=== PATIENT | female | born 2000 | race Hispanic/Latino ===

== ENCOUNTER 2019-03-13 14:00 | Inpatient (IN) | payer BC, OTHER ==
[~2019-03-13] VITALS: Ht 162.6 cm; Wt 92.5 kg
[2019-04-07] MEDS ORDERED: TYLENOL #3 PO ONE (13:53)
[2019-04-08] MEDS ORDERED: LACTATED RINGERS 1,000 ML ONE ×2 (02:29→04:00)
[2019-04-08] MEDS ORDERED: NS 100ML 100 ML IV ONE ×3 (02:29→10:51)
[2019-04-08] MEDS ORDERED: AMPICILLIN SODIUM ONE (02:29)
[2019-04-08] MEDS ORDERED: STADOL IV PRN (03:00)
[2019-04-08] MEDS ORDERED: SUBLIMAZE IV PRN (03:00)
[2019-04-08] MEDS ORDERED: BICITRA PO ONE (03:00)
[2019-04-08] MEDS ORDERED: LACTATED RINGERS 1,000 ML IV SCH ×2 (03:00→05:30)
[2019-04-08] MEDS ORDERED: DEMEROL IV PRN (03:00)
[2019-04-08] MEDS ORDERED: XYLOCAINE SQ PRN (03:00)
[2019-04-08] MEDS ORDERED: PHENERGAN IV PRN (03:00)
[2019-04-08] MEDS ORDERED: ZOFRAN 4 MG/2 ML VIAL IV PRN (03:00)
[2019-04-08] MEDS ORDERED: WATER ONE (03:10)
[2019-04-08] MEDS ORDERED: LIDOCAINE 1% VIAL ONE (03:10)
[2019-04-08] MEDS ORDERED: OXYTOCIN 30 UNIT/NS 500 ML 500 ML IV ONE ×2 (03:10→08:08)
[2019-04-08] MEDS ORDERED: NAROPIN 0.2% 100 ML BAG 100 ML ONE (03:13)
[2019-04-08 03:14] LABS: BASOPHIL % 0.1 % (0.0-0.2); EOSINOPHIL % 0.1 % (0.0-5.0); LYMPHOCYTES # 1.1 10^3/uL (1.2-5.2); LYMPHOCYTES % 14.8 % (24.0-44.0); MEAN CORP HGB 27.3 pg (26-34); MONOCYTES # 0.9 10^3/uL (0.0-0.4); MONOCYTES % 12.7 % (5.0-12.0); NEUTROPHIL # 5.3 10^3/uL (1.8-8.0); NEUTROPHILS % 72.2 % (41.0-85.0); RED CELL DISTRIBUTION WIDTH 16.2 % (11.5-14.5)
[2019-04-08] MEDS ORDERED: AMPICILLIN SODIUM 2 GM in NS 100ML 100 ML ONE (05:23)
[2019-04-08] MEDS ORDERED: REGLAN IV PRN (05:30)
[2019-04-08] MEDS ORDERED: EPHEDRINE SULFATE IV PRN (05:30)
[2019-04-08] MEDS ORDERED: NARCAN IV PRN ×2 (05:30)
[2019-04-08] MEDS ORDERED: LACTATED RINGERS 1,000 ML IV PRN (05:30)
[2019-04-08] MEDS ORDERED: NUBAIN IV PRN (05:30)
[2019-04-08] MEDS ORDERED: AMPICILLIN ONE ×2 (06:10→10:51)
[2019-04-08] MEDS: AMPICILLIN 1 GM in NS 100ML 100 ML IV SCH ×2 (06:40→11:10)
[2019-04-08] MEDS ORDERED: OXYTOCIN 30 UNIT/NS 500 ML 500 ML IV SCH ×2 (08:00→13:30)
[2019-04-08] MEDS ORDERED: ROPIVACAINE EP SCH (09:00)
--- NOTE | 2019-04-08 10:04 | PCM.HP ---
OB-Chief Complaint and HPI Date/Diagnosis Date: Apr 08, 2019 Time: 09:57 Admit Dx: (1) 40 weeks gestation of ICD Codes: Z3A.40 - 40 weeks gestation of SNOMED: 41601811 (2) Active labor at term SNOMED: 14180076 Chief Complaint/History(PI) : 1 Para: 0 EDC: Apr 07, 2019 Reason for admission: active labor Past Family/Social History Patient History: Congestive heart failure No known health problems 32 MOTHER 33 FATHER Blood Type: O+ Rubella: immune RPR/VDRL: Negative GBS Status: Positive HBsAG: Negative Provider Note: 18 y/o @ 40.1 presents in active labor. She was intact and ctx irregularly.She was 6 cm at admission. GBS prophylaxis was started and pt made no cervical change. Pitocin was started and pt received epidural. Pt was sent home yesterday after being on observation status for several hours without making cervical change. Pt is a transfer of care from [facility] at 23 weeks-records reviewed HIV-neg TOCO-6 min FHT Cat 1 SVE -6-7 A/ 18 y/o @ 40.1 labor GBS + P/ Pitocin augmentation AROM Expect OB EXAM Physical Exam Vital Signs: Weight: 204 Allergies Coded Allergies Type Severity Reaction Last Updated Verified No Known Allergies 02/20/19 No LABS Laboratory Tests Test 04/08/19 03:05 HIV-1 Antibody NON-REACTIVE (NONREACTIVE) HIV-2 Antibody NON-REACTIVE (NONREACTIVE) XANDER SUTTON DO Apr 08, 2019 10:04
--- NOTE | 2019-04-08 13:23 | PRM.DELNOT ---
Delivery Summary Delivery: Spont. Vaginal Delivery Assessment/Plan Assessment/Plan 40.1- over an intact perineum with epidural anesthesia. Viable female , Apgars 7/8, Weight 6 lbs 11 oz. Compound presentation with L hand and tight nuchal cord that I was not able to reduce at the perineum. delivered with nuchal cord attached and 1 clamp attached. Once she was delivered I placed the second clamp and cut the cord. The was handed to the mother. Spontaneous placenta. 2nd degree perineal laceration was repaired with 2-0 & 3-0 Chromic. Bilateral labial and vaginal lacerations were repaired with 3-0 Chromic & 4-0 Monocryl. Pt had extensive edema and bilateral periurethral lacerations that were difficult to repair secondary to friable tissue. 3-0 Chromic was used to obtain hemostasis and a red rubber cath was used during the repair. Pt will be monitored for urinary retention. Approx 150 ml of urine expelled. EBL 350 ml. Mother and stable. XANDER SUTTON DO Apr 08, 2019 13:23
[2019-04-08] MEDS ORDERED: TYLENOL PO PRN (13:30)
[2019-04-08] MEDS ORDERED: TUCKS TP PRN (13:30)
[2019-04-08] MEDS ORDERED: DERMOPLAST SPRAY TP PRN (13:30)
[2019-04-08] MEDS ORDERED: NORCO 5MG PO PRN ×2 (13:30)
[2019-04-08] MEDS ORDERED: MYLANTA PO PRN (13:30)
[2019-04-08] MEDS ORDERED: LANOLIN HYDROUS TP PRN (13:30)
[2019-04-08] MEDS ORDERED: TUCKS ONE (14:06)
[2019-04-08] MEDS ORDERED: LANOLIN HYDROUS TP ONE (14:06)
[2019-04-08] MEDS ORDERED: DERMOPLAST SPRAY TP ONE (14:07)
[2019-04-08] MEDS ORDERED: MOTRIN ONE ×2 (14:07→23:12)
[2019-04-08] MEDS: MOTRIN PO PRN ×2 (14:15→23:17)
[2019-04-08] MEDS ORDERED: COLACE PO ONE (20:43)
[2019-04-08] MEDS: COLACE PO SCH (20:47)
[2019-04-08] MEDS ORDERED: NORCO 5MG PO ONE (23:13)
[2019-04-09 06:20] LABS: BASOPHIL % 0.1 % (0.0-0.2); EOSINOPHIL # 0.1 10^3/uL (0.0-0.2); EOSINOPHIL % 0.8 % (0.0-5.0); LYMPHOCYTES # 1.5 10^3/uL (1.2-5.2); LYMPHOCYTES % 17.1 % (24.0-44.0); MEAN CORP HGB 27.2 pg (26-34); MONOCYTES # 1.4 10^3/uL (0.0-0.4); NEUTROPHIL # 5.5 10^3/uL (1.8-8.0); NEUTROPHILS % 64.6 % (41.0-85.0); RED CELL DISTRIBUTION WIDTH 16.3 % (11.5-14.5)
[2019-04-09] MEDS ORDERED: MOTRIN ONE ×2 (11:36→20:58)
[2019-04-09] MEDS: MOTRIN PO PRN ×2 (11:41→21:05)
--- NOTE | 2019-04-09 11:55 | PRM.PN ---
Progress Note Subjective Date: Apr 09, 2019 Time: 11:53 Physician Notes: PPD # 1 Pt is doing well and has not complaints. Pain controlled with Motrin & Wayne. Working on nursing. Appropriate lochia. No issues with urination. Tolerating regular diet. Abd-firm fundus EX- Full ROM, NT A/ 18 y/o s/p GBS + Nursing P/ Continue PP care Nursing assistance Plan for d/c to home tomorrow. Objective Review IO, Exams,& Results Intake and Output 04/09/19 07:00 Intake Total 700 ml Balance 700 ml Intake IV Total 700 ml Laboratory Tests Test 04/08/19 03:05 04/09/19 04:51 White Blood Count 7.3 10^3/uL 8.5 10^3/uL Red Blood Count 5.16 10^6/uL 4.59 10^6/uL Hemoglobin 14.1 g/dL 12.5 g/dL Hematocrit 40.5 % 36.8 % Mean Corpuscular Volume 78.5 fL 80.2 fL Mean Corpuscular Hemoglobin 27.3 pg 27.2 pg Mean Corpuscular Hemoglobin Concent 34.8 g/dL 34.0 g/dL Red Cell Distribution Width 16.2 % 16.3 % Platelet Count 179 10^3/uL 135 10^3/uL Mean Platelet Volume 11.6 fL 11.8 fL Neutrophils (%) (Auto) 72.2 % 64.6 % Lymphocytes (%) (Auto) 14.8 % 17.1 % Monocytes (%) (Auto) 12.7 % 17.0 % Neutrophils # (Auto) 5.3 10^3/uL 5.5 10^3/uL Lymphocytes # (Auto) 1.1 10^3/uL 1.5 10^3/uL Monocytes # (Auto) 0.9 10^3/uL 1.4 10^3/uL Absolute Immature Granulocyte (auto 0.01 10^3 u/L 0.03 10^3 u/L Absolute Eosinophils (auto) 0.0 10^3/uL 0.1 10^3/uL Immature Granulocytes % 0.10 % 0.40 % Eosinophils % 0.1 % 0.8 % Basophils % 0.1 % 0.1 % Basophils # 0.0 10^3/uL 0.0 10^3/uL HIV-1 Antibody NON-REACTIVE HIV-2 Antibody NON-REACTIVE Current Medications Medications (Trade) Dose Ordered Sig/Ama PRN Reason Start Time Stop Time Status Last Admin Acetaminophen (Tylenol) 650 mg Q4HR PRN PAIN 1 - 3 04/08/19 13:30 05/08/19 13:29 Acetaminophen/ Hydrocodone Bitart ([place] 5mg) 1 ea Q4HR PRN PAIN 4 - 6 04/08/19 13:30 05/08/19 13:29 04/08/19 23:16 Acetaminophen/ Hydrocodone Bitart ([place] 5mg) 2 ea Q4HR PRN PAIN 7 - 10 04/08/19 13:30 05/08/19 13:29 Benzocaine (Dermoplast [place]) To perineum PRN sut... PRN PRN Perineal Pain 04/08/19 13:30 05/08/19 13:29 04/08/19 14:13 Docusate Sodium (Colace) 100 mg HS 04/08/19 21:00 05/08/19 20:59 04/08/19 20:47 Ibuprofen (Motrin) 800 mg Q6HR PRN CRAMPING 04/08/19 13:30 05/08/19 13:29 04/09/19 11:41 Lanolin (Lanolin Hydrous) Apply to nipples PRN dry, pain... TID PRN pain/cracking 04/08/19 13:30 05/08/19 13:29 04/08/19 14:14 Nalbuphine HCl (Nubain) 5 mg Q4HR PRN Itching- AFTER DELIVERY ONLY! 04/08/19 05:30 05/08/19 05:29 Ondansetron HCl (Zofran 4 Mg/2 ml Vial) 4 mg Q8H PRN NAUSEA / VOMITING 04/08/19 03:00 05/08/19 02:59 Promethazine HCl (Phenergan) 25 mg Q4H PRN NAUSEA / VOMITING 04/08/19 03:00 05/08/19 02:59 Witch Lyn (Tucks) To perineal area ... PRN PRN Hemorrhoids 04/08/19 13:30 05/08/19 13:29 04/08/19 14:13 XANDER Harrell DO Perineal Prep If Requested (04/08/19 02:42) Npo Except Ice Chips/Popsicles (04/08/19 02:42) Vs Q15min While In Labor (04/08/19 02:42) Temp Q1hr If Ruptured Membrane (04/08/19 02:42) Hbsag (Surf Antigen) (04/08/19 02:42) Ringer's Solution,Lactated (Lactated Rin (04/08/19 03:00) Continuous Monitoring (04/08/19 02:42) Admit Orders (04/08/19 02:42) RPR (04/08/19 02:42) Ondansetron Hcl/Pf (Zofran 4 Mg/2 Ml Via (04/08/19 03:00) Promethazine Hcl (Phenergan) (04/08/19 03:00) Routine Vital Signs (04/08/19 13:10) Activity Advance As Tolerated (04/08/19 13:10) Ice Pk To Episiotomy/Tear (04/08/19 13:10) Sitz Bath Prn (04/08/19 13:10) Docusate Sodium (Colace) (04/08/19 21:00) Lanolin (Lanolin Hydrous) (04/08/19 13:30) Ibuprofen (Motrin) (04/08/19 13:30) Acetaminophen (Tylenol) (04/08/19 13:30) Hydrocodone/Acetaminophen ([place] 5mg) (04/08/19 13:30) Hydrocodone/Acetaminophen ([place] 5mg) (04/08/19 13:30) Mag Hydrox/Aluminum Hyd/Simeth (Mylanta) (04/08/19 13:30) Benzocaine/Lanolin/Aloe Vera (Dermoplast (04/08/19 13:30) Witch Lyn (Tucks) (04/08/19 13:30) Regular Diet (04/08/19 Dinner) Oxytocin/0.9 % Sodium Chloride (Oxytocin (04/08/19 13:30) XANDER SUTTON DO Apr 09, 2019 11:55
[2019-04-09] MEDS ORDERED: COLACE PO ONE (20:58)
[2019-04-09] MEDS: COLACE PO SCH (21:05)
[2019-04-10] MEDS ORDERED: MOTRIN ONE (08:42)
[2019-04-10] MEDS ORDERED: TUCKS ONE (08:42)
[2019-04-10] MEDS: MOTRIN PO PRN (08:48)
--- NOTE | 2019-04-10 09:30 | PRM.PN ---
Progress Note Subjective Date: Apr 10, 2019 Time: 09:24 Physician Notes: PPD # 2 Pt is doing well and has no current complaints. Nursing is going well. Cramping with nursing. Pain controlled with Motrin. Ambulating and urinating without difficulty. Using karla care prn. Abd-firm fundus EX- Full ROM, NT VS-114/69,85,96 %,97.6 A/ 18 y/o s/p -PPD # 2 GBS + Nursing P/ Continue PP care Nursing assistance prn d/c to home. 2 week f/u Objective Review IO, Exams,& Results Laboratory Tests Test 04/09/19 04:51 White Blood Count 8.5 10^3/uL Red Blood Count 4.59 10^6/uL Hemoglobin 12.5 g/dL Hematocrit 36.8 % Mean Corpuscular Volume 80.2 fL Mean Corpuscular Hemoglobin 27.2 pg Mean Corpuscular Hemoglobin Concent 34.0 g/dL Red Cell Distribution Width 16.3 % Platelet Count 135 10^3/uL Mean Platelet Volume 11.8 fL Neutrophils (%) (Auto) 64.6 % Lymphocytes (%) (Auto) 17.1 % Monocytes (%) (Auto) 17.0 % Neutrophils # (Auto) 5.5 10^3/uL Lymphocytes # (Auto) 1.5 10^3/uL Monocytes # (Auto) 1.4 10^3/uL Absolute Immature Granulocyte (auto 0.03 10^3 u/L Absolute Eosinophils (auto) 0.1 10^3/uL Immature Granulocytes % 0.40 % Eosinophils % 0.8 % Basophils % 0.1 % Basophils # 0.0 10^3/uL Current Medications Medications (Trade) Dose Ordered Sig/Ama PRN Reason Start Time Stop Time Status Last Admin Acetaminophen (Tylenol) 650 mg Q4HR PRN PAIN 1 - 3 04/08/19 13:30 05/08/19 13:29 Acetaminophen/ Hydrocodone Bitart ([place] 5mg) 1 ea Q4HR PRN PAIN 4 - 6 04/08/19 13:30 05/08/19 13:29 04/08/19 23:16 Acetaminophen/ Hydrocodone Bitart ([place] 5mg) 2 ea Q4HR PRN PAIN 7 - 10 04/08/19 13:30 05/08/19 13:29 Benzocaine (Dermoplast [place]) To perineum PRN sut... PRN PRN Perineal Pain 04/08/19 13:30 05/08/19 13:29 04/08/19 14:13 Docusate Sodium (Colace) 100 mg HS 04/08/19 21:00 05/08/19 20:59 04/09/19 21:05 Ibuprofen (Motrin) 800 mg Q6HR PRN CRAMPING 04/08/19 13:30 05/08/19 13:29 04/10/19 08:48 Lanolin (Lanolin Hydrous) Apply to nipples PRN dry, pain... TID PRN pain/cracking 04/08/19 13:30 05/08/19 13:29 04/08/19 14:14 Nalbuphine HCl (Nubain) 5 mg Q4HR PRN Itching- AFTER DELIVERY ONLY! 04/08/19 05:30 05/08/19 05:29 Ondansetron HCl (Zofran 4 Mg/2 ml Vial) 4 mg Q8H PRN NAUSEA / VOMITING 04/08/19 03:00 05/08/19 02:59 Promethazine HCl (Phenergan) 25 mg Q4H PRN NAUSEA / VOMITING 04/08/19 03:00 05/08/19 02:59 Witch Lyn (Tucks) To perineal area ... PRN PRN Hemorrhoids 04/08/19 13:30 05/08/19 13:29 04/08/19 14:13 XANDER Harrell DO Routine Vital Signs (04/08/19 13:10) Activity Advance As Tolerated (04/08/19 13:10) Ice Pk To Episiotomy/Tear (04/08/19 13:10) Sitz Bath Prn (04/08/19 13:10) Docusate Sodium (Colace) (04/08/19 21:00) Lanolin (Lanolin Hydrous) (04/08/19 13:30) Ibuprofen (Motrin) (04/08/19 13:30) Acetaminophen (Tylenol) (04/08/19 13:30) Hydrocodone/Acetaminophen ([place] 5mg) (04/08/19 13:30) Hydrocodone/Acetaminophen ([place] 5mg) (04/08/19 13:30) Mag Hydrox/Aluminum Hyd/Simeth (Mylanta) (04/08/19 13:30) Benzocaine/Lanolin/Aloe Vera (Dermoplast (04/08/19 13:30) Witch Lyn (Tucks) (04/08/19 13:30) Regular Diet (04/08/19 Dinner) Oxytocin/0.9 % Sodium Chloride (Oxytocin (04/08/19 13:30) XANDER SUTTON DO Apr 10, 2019 09:30
--- NOTE | 2019-04-10 09:36 | PRM.DC ---
OB Discharge Summary Discharge Summary Date of Arrival on Unit: Apr 08, 2019 Reason for Visit: Labor Discharge Date: Apr 10, 2019 Patient History: Congestive heart failure No known health problems 32 MOTHER 33 FATHER Procedure(s) & Date(s) Complications: No Complications Medications: Motrin Discharge Diagnosis: Status Post Discharge Disposition: Stable Assessment & Plan A/ 18 y/o s/p -PPD # 2 GBS + Nursing P/ Continue PP care Nursing assistance prn d/c to home. 2 week f/u XANDER SUTTON DO Apr 10, 2019 09:35
--- NOTE | 2019-04-10 11:34 | NUR ---
DISCHARGE DISCHARGE INSTRUCTIONS GIVEN AT THIS TIME. MOM DENIES NEEDING ANY ADDITIONAL RESOURCES AT THIS TIME. EDUCATED PATIENT ON POST S/S TO WATCH FOR AND FOLLOW-UP APPOINTMENT.
== END 2019-04-10 12:00 | disposition home or self-care (01) | DRG 807 ==
LOC: LND 04-08 02:30
PROVIDERS: ADMIT Obstetrics & Gynecology; ATTEND Obstetrics & Gynecology
PROC: 10E0XZZ Delivery of Products of Conception, External Approach (ICD-10-PCS; principal; 2019-04-08)
PROC: 0KQM0ZZ Repair Perineum Muscle, Open Approach (ICD-10-PCS; 2019-04-08)
PROC: 3E0R3BZ Introduction of Anesthetic Agent into Spinal Canal, Percutaneous Approach (ICD-10-PCS; 2019-04-08)
PROC: 00HU33Z Insertion of Infusion Device into Spinal Canal, Percutaneous Approach (ICD-10-PCS; 2019-04-08)
PROC: 10907ZC Drainage of Amniotic Fluid, Therapeutic from Products of Conception, Via Natural or Artificial Opening (ICD-10-PCS; 2019-04-08)
PROC: 0UQMXZZ Repair Vulva, External Approach (ICD-10-PCS; 2019-04-08)
DX: O99.824 Streptococcus B carrier state complicating childbirth (principal); Z37.0 Single live birth; O69.1XX0 Labor and delivery complicated by cord around neck, with compression, not applicable or unspecified; O70.1 Second degree perineal laceration during delivery; O71.82 Other specified trauma to perineum and vulva; O77.0 Labor and delivery complicated by meconium in amniotic fluid; O32.6XX0 Maternal care for compound presentation, not applicable or unspecified; Z82.49 Family history of ischemic heart disease and other diseases of the circulatory system; Z3A.40 40 weeks gestation of pregnancy
CPT/HCPCS: 36415; 59610; 85025; 86318; 86592; 86900; G0378; J0290; J2001; J3490; J7050; J7120

== ENCOUNTER 2019-03-28 03:33 | Observation (INO) | payer BC, OTHER ==
[~2019-03-28] VITALS: Ht 162.6 cm; Wt 93.0 kg
[2019-03-28 04:02] LABS: BILIRUBIN,URINE NEGATIVE (NEGATIVE); UROBILINOGEN,URINE NORMAL (NEGATIVE)
[2019-03-28 04:09] LABS: APPEARANCE,URINE CLOUDY (CLEAR); UA COLOR YELLOW (YELLOW)
[2019-03-28 07:56] VITALS: BP 108/70
== END 2019-03-28 08:05 | disposition home or self-care (01) ==
LOC: ATP 03:33
PROVIDERS: ADMIT Obstetrics & Gynecology; ATTEND Obstetrics & Gynecology
DX: O42.92 Full-term premature rupture of membranes, unspecified as to length of time between rupture and onset of labor (principal); O62.9 Abnormality of forces of labor, unspecified; Z3A.38 38 weeks gestation of pregnancy; Z79.899 Other long term (current) drug therapy
CPT/HCPCS: 80307; 81000; 84112; 87086; G0378 ×5

== ENCOUNTER 2019-04-07 04:55 | Observation (INO) | payer BC, OTHER ==
[~2019-04-07] VITALS: Ht 162.6 cm; Wt 92.5 kg
[2019-04-07 05:27] LABS: BILIRUBIN,URINE NEGATIVE (NEGATIVE); UROBILINOGEN,URINE NORMAL (NEGATIVE)
[2019-04-07 05:35] LABS: APPEARANCE,URINE HAZY (CLEAR); UA COLOR YELLOW (YELLOW)
--- NOTE | 2019-04-07 11:52 | PCM.HP ---
OB-Chief Complaint and HPI Date/Diagnosis Date: Apr 07, 2019 Chief Complaint/History(PI) : 1 Para: 0 EDC: Apr 07, 2019 Reason for admission: other (early labor) Past Family/Social History Patient History: Congestive heart failure No known health problems 32 MOTHER 33 FATHER Blood Type: O+ Rubella: immune RPR/VDRL: Negative GBS Status: Positive HBsAG: Negative Provider Note: 18 y/o @ 40.0 presented to triage in early labor. Here with FOB Pradeep and her mother. Making slow changed 2-4 cm. Good FM, Cat 1 FHT. Not requesting pain meds, breathing through CTX that are 7-8 min apart. Transfer of care at 23 week from [facility], uncomplicated A/ 18 y/o @ 40.0 GBS + Early labor P/ Pain meds prn Start GBS prophylaxis at 6 cm or SROM Ambulation OB EXAM Physical Exam Vital Signs: Weight: 204 Vital Signs Date Time Temp Pulse Resp B/P (MAP) Pulse Ox O2 Delivery O2 Flow Rate FiO2 04/07/19 06:07 Room Air Allergies Coded Allergies Type Severity Reaction Last Updated Verified No Known Allergies 02/20/19 No XANDER SUTTON DO Apr 07, 2019 11:52
[2019-04-07] MEDS ORDERED: TYLENOL #3 PO ONE (14:00)
[2019-04-07 14:16] VITALS: BP 111/64
== END 2019-04-07 14:45 | disposition home or self-care (01) ==
LOC: ATP 04:55
PROVIDERS: ADMIT Obstetrics & Gynecology; ATTEND Obstetrics & Gynecology
DX: O62.9 Abnormality of forces of labor, unspecified (principal); Z3A.40 40 weeks gestation of pregnancy; Z79.899 Other long term (current) drug therapy
CPT/HCPCS: 59025; 81000; 87086; G0378 ×10